=== PATIENT | female | born 1990 | race Caucasian/White ===

== ENCOUNTER → 2020-08-21 06:51 | Outpatient (CLI) | payer OTHER, SELFPAY ==
[2020-08-02 09:10] VITALS: BMI 26.5
--- NOTE | 2020-08-22 08:32 | PFT ---
INTRODUCTION: The patient is a 30-year-old female that presents for pulmonary function studies secondary to a diagnosis of dyspnea. Respiratory therapy reports good patient effort. Bronchodilators were used during testing. INTERPRETATION: Forced expiration spirometry demonstrates no evidence of a large airways obstructive ventilatory defect. There was no significant response to aerosolized bronchodilators, based upon strict ATS criteria. Spirograms are of good quality and plateau normally. Body plethysmography was performed and reveals lung volumes to be within normal limits. Diffusing capacity by single breath CO is also within normal limits. IMPRESSION: Grossly normal pulmonary function studies.
== END ==
PROVIDERS: PCP Family Medicine; Referring Provider Internal Medicine Critical Care Medicine; Visit Provider Internal Medicine Critical Care Medicine
DX: R06.00 Dyspnea, unspecified (principal)
CPT/HCPCS: 94060; 94726; 94729

== ENCOUNTER 2021-02-20 13:18 | Outpatient (RCR) | payer OTHER, SELFPAY ==
[2020-08-28 07:29] VITALS: BMI 26.2
== END 2021-04-23 23:59 ==
LOC: IMMUN 13:18
PROVIDERS: PCP Family Medicine; Visit Provider Family Medicine
DX: Z23 Encounter for immunization (principal)
CPT/HCPCS: 0001A; 0002A; 91300

== ENCOUNTER → 2022-08-02 | Outpatient (CLI) | payer OTHER, SELFPAY ==
[2022-08-02 10:02] LABS: Absolute Lymphocyte Count 2.77 X10^3/uL (0.83-4.51); Absolute Neutrophil Count 3.3 X10^3/uL (2.0-7.7); Basophil# 0.09 X10^3/uL; Basophil% 1.3 % (0-1); Eosinophil# 0.18 X10^3/uL; Eosinophils% 2.7 % (0-5); Hematocrit 45.3 % (37-47); Hemoglobin 14.3 g/dL (12.0-15.0); Lymphocyte # 2.77 X10^3/ul (0.83-4.51); Lymphocyte % 41.2 % (19-41); Mean Corp Hgb Conc 31.6 g/dL (32-36); Mean Corpuscular Hgb 30.2 pg (27.0-32.0); Mean Corpuscular Volume 95.8 fL (81-99); Mean Platelet Vol. 10.6 fl (6.2-12.0); Monocyte% 5.9 % (0-10); NRBC Flagged by Analyzer 0 % (0-5); Neutrophil # 3.28 X10^3/uL (2.7-7.7); Neutrophil % 48.8 % (47-70); Platelet Count 238 K/mm3 (150-450); RBC Distribution Width CV 12.9 % (11.6-14.6); RBC Distribution Width SD 45.8 fl (35.1-43.9); Red Blood Count 4.73 M/mm3 (4.2-5.4); White Blood Count 6.7 K/mm3 (4.4-11.0)
[2022-08-02 10:26] LABS: Anion Gap 6 (5-15); BUN 11 mg/dL (7-18); BUN/Creat Ratio 13.9 RATIO (10-20); Calcium,Total 9.3 mg/dL (8.5-10.1); Chloride 107 mmol/L (98-107); Cholesterol 191 mg/dL (200); Creatinine, Serum 0.79 mg/dL (0.55-1.02); EST Glomerular Filtration Rate 88 mL/min (>60); Est Glom Filt Rate - Afr Amer 107 mL/min (>60); Glucose 96 mg/dL (74-106); High Density Lipoprotein 81 mg/dL; Potassium 4.9 mmol/L (3.5-5.1); Sodium Level 141 mmol/L (136-145); Thyroid Stim Hormone (TSH) 1.25 uIU/mL (0.358-3.74); Triglycerides 70 mg/dL; Very Low Density Lipoprotein 14 mg/dL (5-40)
== END | disposition home or self-care (01) ==
LOC: LAB 09:50
PROVIDERS: PCP Family Medicine; Referring Provider Family Medicine; Visit Provider Family Medicine
DX: Z00.00 Encounter for general adult medical examination without abnormal findings (principal); R53.83 Other fatigue
CPT/HCPCS: 36415; 80048; 80061; 84443; 85025

== ENCOUNTER → 2022-10-02 | Outpatient (CLI) | payer OTHER, SELFPAY ==
--- NOTE | 2022-10-02 10:38 | RAD_ITS ---
STUDY: X-RAY - RIGHT HAND, ATTENTION FIFTH FINGER REASON FOR EXAM: Female, 32 years old. FINGER INJURY TECHNIQUE: 3 view(s) of the finger were obtained. COMPARISON: None. FINDINGS: Normal metacarpal head. Normal metacarpophalangeal joint. Normal proximal phalanx. Normal middle phalanx. There is evidence of an avulsion fracture at the base of the distal phalanx of the fifth digit along its dorsal aspect. There is caudal displacement. Normal proximal interphalangeal joint. Normal distal interphalangeal joint. Soft tissue swelling. RAD/Finger(s) Min 2 Views IMPRESSION: Mildly inferiorly displaced avulsion fracture at the base of the distal phalanx of the fifth digit along its dorsal aspect. Electronically Signed: Isaac Kuo MD at 13:11 EST ,
== END | disposition home or self-care (01) ==
PROVIDERS: PCP Family Medicine; Referring Provider Family Medicine; Visit Provider Family Medicine
DX: S69.91XA Unspecified injury of right wrist, hand and finger(s), initial encounter (principal)
CPT/HCPCS: 73140

== ENCOUNTER → 2022-11-14 | Outpatient (CLI) | payer OTHER, SELFPAY ==
--- NOTE | 2022-11-14 09:05 | RAD_ITS ---
STUDY: X-RAY - RIGHT HAND REASON FOR EXAM: Female, 32 years old. Right fifth finger injury. TECHNIQUE: 3 view(s) of the hand. COMPARISON: October 02, 2022. FINDINGS: Normal radiocarpal articulation. Normal distal radioulnar joint. Normal visualized carpal bones. Normal carpal articulations Normal carpometacarpal articulation of the thumb. Normal second through fifth carpometacarpal joints. Normal metacarpi. Normal metacarpophalangeal joint of the thumb. Normal interphalangeal joint of the thumb. Normal proximal and distal phalanges of the thumb. Stable small minimally displaced avulsion fracture from the dorsal and proximal aspect of the distal phalanx of the fifth digit. No complicating features . The soft tissue structures are unremarkable. RAD/Hand Min 3 Views IMPRESSION: Stable avulsion fracture of the fifth digit as described without complications. Electronically Signed: Deion Hansen, at 9:35 EST ,
== END | disposition home or self-care (01) ==
LOC: MTRAD 09:02
PROVIDERS: PCP Family Medicine; Referring Provider Family Medicine; Visit Provider Family Medicine
DX: S69.91XA Unspecified injury of right wrist, hand and finger(s), initial encounter (principal)
CPT/HCPCS: 73130; 73140

== ENCOUNTER 2023-03-02 16:30 | Outpatient (RCR) | payer BC, SELFPAY ==
--- NOTE | 2023-02-03 10:18 | HP.OTEVAL_ITS ---
Patient's Visit Information JEANA WEINBERG is a 32 year old F, referred to Occupational Therapy by Dr. Marah Hightower MD, with a diagnosis of right LF disp.pahlanx fx. Date of Evaluation: 02/02/23 Occupational Therapist: Amie Iniguez, OTR/Abbey, CHT - Subjective This 32 year old female was seen for OT eval with dx of right LF fracture of distal phalanx- 2021 was DOI pt wearing splint Nov- until Nov. weaning out of it. pt states she was told to go without at night-. pt is left handed. 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 would like to return to her PLOF. - Pain right LF 2 Pain Intensity Range: 4 - ROM MP: right 0/90 left 0/85 PIP: right 0/65 left 0/95 DIP: right 0/10 left 0/ 75 ROM Comments: pt demo with limited ROM of right LF - Strength Vocational Ed Instructor: right 15# left 45# Lateral Pinch: right 4# left 8# Tripod Pinch: right 6# left 6# - Sensation Sensation Comments: denies - Quick DASH-Disab of Arm,Shoulder& Hand Quick DASH Score: 46.0525 - Goals Goal:ROM equal to unaffected hand: Yes Goal:Vocational Ed Instructor/Pinch strength at least 75% of unaffected hand: Yes Goal:Full use of affected hand in daily activities including: Yes - Rehabilitation General Assessment: pt demo with a decrease composite fist of right dominate hand limiting pts IND. with ADLs and IADLs. pt would benefit from skilled OT services 1-2x week for 6 weeks to increase pts functional ROM and use of right LF without compensation. Today therapist ed. pt on AROM tendon glides and blocking ex. along with meli taping when around her dog to prevent hitting her finger. Pt demo understanding and agrees to POC Rehabilitation Potential: Good - Anticipated Interventions A/AAROM/PROM, Strengthening, Triggerpoint Release, Desensitization, Modalities, Orthoses, Joint Protection/Energy Conservation, Ergonomic Education, Fine Motor Coord/Sukhi, Education re assistive Equipment, Education re Diagnosis, Home Program - Visit Plan Frequency: 1-2x /Week Duration: 4 Weeks TEXT: Thank you for the opportunity to evaluate your patient. For Medicare and Medicare HMO plans, please review the plan of care and approve it. It will need to be FAXED BACK to us at [phone] for Medicare purposes. Please let me know if there are questions or concerns regarding this plan of care. Physician S ignature: Date:
--- NOTE | 2023-06-19 09:55 | HP.OTDCSUM_ITS ---
Discharge Summary D/C Summary: It has been my pleasure to treat JEANA WEINBERG under orders from Dr. Marah Hightower MD, for the diagnosis of right LF disp.pahlanx fx for a total of 5 visit(s). Please see the following information for a summary of their discharge status. Objective Objective/Function: PIP 85 PIP following 95 increase from 65* DIP 30 DIP 40* increase 10* pt demo 40# right special services director increase from 15# pt continues to demo limited DIP flexion compared to unaffected finger- therapist ed. pt that full end range of motion may take 6-9 months. pt demo understanding and agree to POC of d/c. Goals Patient Goals: Regain Mobility, Regain Strength, Decrease Pain, Use Hand/Wrist/Arm Normally Again and Be More Independent in ADLS Goal:ROM equal to unaffected hand: Yes Goal:Animal Keeper Head/Pinch strength at least 75% of unaffected hand: Yes Goal:Full use of affected hand in daily activities including work: Yes D/C Information d/c sentence: If there are questions or concerns regarding this patient's occupational therapy, please fell free to call me at [phone]. Thank you for the referral of this patient. Sincerely, Amie Iniguez, OTR/L, CHT
== END 2023-03-02 19:00 | disposition home or self-care (01) ==
LOC: OT 16:30
PROVIDERS: PCP Family Medicine; Referring Provider Orthopaedic Surgery Hand Surgery; Visit Provider Orthopaedic Surgery Hand Surgery
DX: S62.639D Displaced fracture of distal phalanx of unspecified finger, subsequent encounter for fracture with routine healing (principal)
CPT/HCPCS: 97110; 97140; 97166; 97530

== ENCOUNTER → 2023-08-07 | Outpatient (CLI) | payer BC, SELFPAY ==
[2023-08-07 12:19] LABS: Absolute Lymphocyte Count 1.81 X10^3/uL (0.83-4.51); Absolute Neutrophil Count 6.4 X10^3/uL (2.0-7.7); Basophil# 0.06 X10^3/uL; Basophil% 0.7 % (0-1); Eosinophil# 0.09 X10^3/uL; Hemoglobin 12.8 g/dL (12.0-15.0); Lymphocyte # 1.81 X10^3/ul (0.83-4.51); Lymphocyte % 20.4 % (19-41); Mean Corpuscular Hgb 30.1 pg (27.0-32.0); Mean Corpuscular Volume 94.1 fL (81-99); Monocyte# 0.48 X10^3/uL; Monocyte% 5.4 % (0-10); NRBC Flagged by Analyzer 0 % (0-5); Neutrophil % 72.2 % (47-70); Platelet Count 230 K/mm3 (150-450); RBC Distribution Width CV 12.7 % (11.6-14.6); RBC Distribution Width SD 43.8 fl (35.1-43.9); Red Blood Count 4.25 M/mm3 (4.2-5.4); White Blood Count 8.9 K/mm3 (4.4-11.0)
[2023-08-07 13:42] LABS: ALB/GLOB Ratio 1.1 RATIO (0.9-2.4); AST(SGOT) 16 U/L (15-37); Alanine Aminotransfer ALT/SGPT 28 U/L (13-56); Albumin, Serum 3.8 g/dL (3.2-5.0); Alkaline Phosphatase 58 U/L (45-117); Anion Gap 3 (5-15); BUN 14 mg/dL (7-18); BUN/Creat Ratio 18.2 RATIO (10-20); Chloride 108 mmol/L (98-107); Cholesterol 158 mg/dL (200); Creatinine, Serum 0.77 mg/dL (0.55-1.02); EST Glomerular Filtration Rate 91 mL/min (>60); Est Glom Filt Rate - Afr Amer 110 mL/min (>60); Globulin 3.5 g/dL (2.2-4.2); Glucose 96 mg/dL (74-106); High Density Lipoprotein 67 mg/dL; Potassium 4.2 mmol/L (3.5-5.1); Protein, Total 7.3 g/dL (6.4-8.2); Sodium Level 138 mmol/L (136-145); Thyroid Stim Hormone (TSH) 0.92 uIU/mL (0.358-3.74); Triglycerides 63 mg/dL; Very Low Density Lipoprotein 13 mg/dL (5-40)
[2023-08-12 17:07] LABS: Age Gdln ACOG Testing 30-65 (.); HPV APTIMA, High Risk Negative (Negative)
[2023-08-12 17:46] LABS: HPV Reflexed? YES, CHARGE PATIENT
== END | disposition home or self-care (01) ==
PROVIDERS: PCP Family Medicine; Referring Provider Family Medicine; Visit Provider Family Medicine
DX: Z00.00 Encounter for general adult medical examination without abnormal findings (principal); Z12.4 Encounter for screening for malignant neoplasm of cervix; R00.0 Tachycardia, unspecified
CPT/HCPCS: 36415; 80053; 80061; 84443; 85025; 87624; 88175; G0145

== ENCOUNTER 2023-10-12 07:30 | Outpatient (RCR) | payer BC, SELFPAY ==
--- NOTE | 2023-08-21 12:35 | HP.PTEVAL_ITS ---
Patient's Visit Information Visit Information Visit Information: JEANA WEINBERG is a 33 year old F referred to Physical Therapy by Dr. Chi Lynn, with a diagnosis of PATELLOFEMORAL DISORDER AND PAIN IN L KNEE. Date of Evaluation: 08/21/23 Physical Therapist: Shelia Villaseñor, PT, Cert MDT Visit Plan Frequency: 2x /Week Duration: 4-6 Weeks Plan: LLE ROM, STRETCHING, STRENGTHENING AND FUNCTIONAL TRAINING/CORRECTIVE EX TO HELP MEET SET GOALS. CONSIDER FOOT MECHANICS AND NEED FOR ORTHOTICS. ALSO CONSIDER VIDEO FOR MOVEMENT ANALYSIS. HEP INSTRUCTION. 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 Disability: NO Present symptoms: LEFT KNEE PAIN NEAR KNEE CAP. PATIENT DENIES LE NUMBNESS AND TINGLING. Present since: APPROX MARCH 2023. HAS BEEN CONTINUING TO WORK OUT AND WORK THROUGH THE PAIN BUT IN COULDN'T PUSH THROUGH TO DO A SQUAT AND THAT IS WHEN DECIDED TO CONSULT ORTHO. Pain Scale: WORST 9/10, LEAST 1/10. SHARP PAINS ARE BRIEF. ACHING IS MORE CONSTANT. Currently: 1/10 Is it getting better, worse or staying the same: GETTING BETTER. Commenced as a result of: NO APPARENT REASON Symptoms at onset: PAIN IN THE BACK OF THE KNEE Worse: TRYING TO MOVE AFTER BEING STATIONARY FOR A PROLONGED PERIOD OF TIME, SQUATTING, LUNGES, GOING UP AND DOWN STEPS. Better: CONTINUING TO MOVE THROUGH STIFFNESS. COMPRESSION SLEEVE. ORAL STEROID - STARTED IT THURSDAY AND TODAY IS THE LAST DAY - HAS HELPED SIGNIFICANTLY. Disturbed sleep: NOT CURRENTLY BUT IT WAS. Previous history/Previous treatment: L KNEE PAIN AT AGE 12. WENT TO ORTHO AT THAT TIME - NOT SURE OF DX. TREATED WITH CORTISONE SHOTS AND THERAPY. PAIN HAS BEEN EPISODIC OVER THE YEARS. HAS HAD MULTIPLE CORTISONE SHOTS. SOMETIMES THE PAIN LASTS FOR 2-3 DAYS AND STOPS ON ITS OWN AND OTHER TIMES IT DOENS'T. THIS SEEMS TO BE THE LONGEST EPISODE. NO KNEE SURGERY. Treatment this episode: ONE CONSULT WITH DR. LYNN. ORAL STEROID. THIS PT REFERRAL. Gait: DIFFICULTY INITIATING GAIT AFTER PROLONGED SITTING OR LYING BUT THEN BECOMES NORMAL AND MILD 1/10 PAIN. Bowel or Bladder Dysfunction: NO Accidents: NO Unexplained weight loss: NO Imaging: RECENT L KNEE X-RAY SHOWS KNEE CAP IS PULLED SLIGHTLY FORWARD PER PATIENT REPORT. PMH/Recent major surgery: GOING TO BE EVALUATED FOR TACHYCARDIA. DENIES H/O LBP. OTHER: WORKING OUT REGULARLY UNTIL SEP 2022, BROKE FINGER, THEN RESUMED EXERCISING IN MARCH 2023 AND RELATED KNEE PAIN TO MUSCLE FATIGUE. PATIENT GOAL: TO MAKE SURE I AM MOVING RIGHT AND TO LEARN WHAT TO DO TO HELP IT WITHOUT A STEROID IF IT DOES FLARE BACK UP AGAIN. Objective Objective: THIS PATIENT AMBULATES INDEP'LY INTO PHYSICAL THERAPY WITHOUT ANY AD'S OR GROSS DEVIATIONS NOTED. INDEP TRANSFERS SIT TO STAND WITHOUT UE ASSIST. MILD LEFT PF JT REGION SWELLING. MILD TENDERNESS ALONG MEDIAL AND L ATERAL/INFERIOR PF JT LINES. MIKAEL LE LIGHT TOUCH SENSATION GROSSLY INTACT AND SYMMETRICAL. MIKAEL LE ROM WFL WITH MILD HS AND GASTROC-SOLEUS TIGHTNESS. STRENGTH: RLE: WFL. LLE: HIP FLEX 4/5, ABD 4/5, ADD 4/5, EXT 4+/5 IR 4/5 ER 4/5, KNEE EXT 4/5, KNEE FLEX 5/5, ANKLE 5/5. CORE STRENGTH: FAIR. PATIENT ABLE TO SQUAT TO 90 DEG TODAY BUT EXHIBITS L KNEE VALGUS AND L FOOT PRONATION. TREATMENT: 4 WAY SLR'S, TKE AND WALL LEAN CALF STRETCHING - WRITTEN HEP INSTRUCTIONS PROVIDED. PATIENT PERFORMED AND TOLERATED EX'S WELL TODAY. Special Tests L Knee Nelson - Meniscus: Negative L Knee Anterior Drawer - ACL: Negative L Knee Posterior Drawer - PCL: Negative L Knee Valgus - MCL: Negative L Knee Varus - LCL: Negative Balance/Special Test Scores Lower Extremity Functional Score: 72 Goals Goal 1:: PATIENT WILL BE ABLE TO GO UP AND DOWN STEPS RECIP WITHOUT UE ASSIST, DEVIATION OR C/O PAIN. Goal Time Frame: 4-6 Weeks Goal 2:: PATIENT WILL BE ABLE TO DO SQUATS AND LUNGES WITHOUT PAIN OR DEVIATION TO ALLOW FOR RETURN TO PRIOR LEVEL OF FUNCTION Goal Time Frame: 4-6 Weeks Goal 3:: PATIENT WILL BE INDEP WITH A SAFE HEP FOR CONTINUED IMPROVEMENT ONCE FORMAL PHYSICAL THERPAY CONCLUDES. Goal Time Frame: 4-6 Weeks Rehabilitation Potential Rehabilitation Potential: Good Anticipated Interventions Patient/Client Instruction: Educate patient on: Condition, Plan of Care and Risk Factors For the Purpose of:: To improve self management Therapeutic Exercise to Include: Strength training, Body mechanics and Flexibilty training Comment: STAIR TRAINING For the Purpose of:: To decrease pain, To increase ROM, To improve muscle performance and motor function, To increase tolerance to activity/condition/position and To improve ability of physical actions for home/community/work/leisure Cryotherapy (ice pack, ice massage): Yes For the Purpose of:: To decrease swelling/inflammation Text: Thank you for the opportunity to evaluate your patient. For Medicare and Medicare HMO plans, please review the plan of care and approve it. It will need to be FAXED BACK to us at [phone] for Medicare purposes. For Medicare only, by signing this I certify the plan of care. Please let me know if there are questions or concerns regarding this plan of care. Physician Signature: Date:____
--- NOTE | 2023-09-18 07:53 | HP.PTREVAL ---
Re-Evaluation Intro: Dr. Chi Lynn, DO, It has been my pleasure to treat JEANA WEINBERG over the last 8 visits for PATELLOFEMORAL DISORDER AND PAIN IN L KNEE. Please see the progress note below for an update on the physical therapy plan of care! Subjective Subjective: Much better but still some discomfort intermittently. Overall about 90% better. Steroids really helped and has been off for a while. Pain is no longer sharp but more fatigue and brief now. Sore medially this am to the touch. Worked out this am upper body and hang cleans. Avoiding lower level of lunges. Sleep is OK. Exercises are Ok. Activities are normal just painful at times. Got new shoes per recommendation. Doing beach body 645...squats and lunges, single leg deadlifts. Objective Objective/Function: Full AROM L knee without pain, walking normal and steps normal, squats without sagittal plane abnormalities today or compensation. Plan Plan Plan: Pt to addx above mentioned ex to HEP and continue at home for 3 weeks then f/u tas needed to ensure progess and d/c. Consider progression of coronal and frontal plane ex. Balance/Gait/Functional tests Balance/Special Test Scores Lower Extremity Functional Score: 73 Goals Goals Goal 1:: PATIENT WILL BE ABLE TO GO UP AND DOWN STEPS RECIP WITHOUT UE ASSIST, DEVIATION OR C/O PAIN. Goal Time Frame: 4-6 Weeks Goal Progress: Goal Met Goal 2:: PATIENT WILL BE ABLE TO DO SQUATS AND LUNGES WITHOUT PAIN OR DEVIATION TO ALLOW FOR RETURN TO PRIOR LEVEL OF FUNCTION Goal Time Frame: 4-6 Weeks Goal Progress: modified Goal 3:: PATIENT WILL BE INDEP WITH A SAFE HEP FOR CONTINUED IMPROVEMENT ONCE FORMAL PHYSICAL THERPAY CONCLUDES. Goal Time Frame: 4-6 Weeks Goal Progress: Goal Met Anticipated Interventions Anticipated Interventions Patient/Client Instruction: Educate patient on: Condition, Plan of Care and Risk Factors For the Purpose of:: To improve self management Therapeutic Exercise to Include: Strength training, Body mechanics and Flexibilty training Comment: STAIR TRAINING For the Purpose of:: To decrease pain, To increase ROM, To improve muscle performance and motor function, To increase tolerance to activity/condition/position and To improve ability of physical actions for home/community/work/leisure Cryotherapy (ice pack, ice massage): Yes For the Purpose of:: To decrease swelling/inflammation Re-Evaluation Ending Re-evaluation ending: Please do not hesitate to contact me at [phone] by phone or if you have questions or concerns regarding this new plan of care! Sincerely, Daquan James, DPT, OCS, CSCS
--- NOTE | 2023-10-12 07:51 | HP.PTDCSUM ---
Discharge Summary D/C summary: It has been my pleasure to treat JEANA WEINBERG referred by Dr. Chi Lynn DO, with the diagnosis of PATELLOFEMORAL DISORDER AND PAIN IN L KNEE for a total of 9 visit(s). Discharge Date: 10/12/23 Please see the following information for a summary of their discharge status. Subjective Subjective: Regular working out and working from home. Travelled to [place] last week. Wore compression sleeve down with trip as knee was bothering her. Got sharp pain crossing legs for 15 seconds last week. HEP going well, To doctor Spittle today. Sleep is OK. Plans to continue via HEP strengthening legs 3x/week. Overall Improvement % Improvement: 90 Objective Objective/Function: Full aROM without pain today. strength in hip is 4+/5 without pain, good flexibillity. Walks and steps today without pain, squats and lunges without pain today. Goals Goal 1:: PATIENT WILL BE ABLE TO GO UP AND DOWN STEPS RECIP WITHOUT UE ASSIST, DEVIATION OR C/O PAIN. Goal Progress: Goal Met Goal 2:: PATIENT WILL BE ABLE TO DO SQUATS AND LUNGES WITHOUT PAIN OR DEVIATION TO ALLOW FOR RETURN TO PRIOR LEVEL OF FUNCTION Goal Progress: Goal Met Goal 3:: PATIENT WILL BE INDEP WITH A SAFE HEP FOR CONTINUED IMPROVEMENT ONCE FORMAL PHYSICAL THERPAY CONCLUDES. Goal Progress: Goal Met Plan Plan: d/c to HEP, pt to see doctor today for f/u. D/C Information Discharge Comments: d/c pt to continue HEP LE strength 3x/week and f/u with doctor to see if any other options this morning. d/c sentence: If there are questions or concerns regarding this patient's physical therapy, please feel free to call me at [phone]. Thank you for the referral of this patient. Sincerely, Daquan James, DPT, OCS, CSCS Balance/Gait/Functional tests Balance/Special Test Scores Lower Extremity Functional Score: 73 Improvement % Improvement: 90
== END 2023-10-12 19:00 | disposition home or self-care (01) ==
LOC: PT 07:30
PROVIDERS: PCP Family Medicine; Visit Provider Student in an Organized Health Care Education/Training Program
DX: M22.2X2 Patellofemoral disorders, left knee (principal); M25.562 Pain in left knee
CPT/HCPCS: 97110; 97161; 97164; 97530

== ENCOUNTER → 2023-11-25 | Outpatient (CLI) | payer BC, SELFPAY ==
--- NOTE | 2023-11-25 13:54 | ECHOD_ITS ---
Reason For Study: TACHYCARDIA Procedure This was a 2D Doppler, Color Flow transthoracic echocardiogram. Exam performed in department. Left Ventricle Normal LV size. Left ventricular systolic function is normal. The estimated ejection fraction is 60 %. Normal diastology for age. No regional wall motion abnormalities noted. Right Ventricle Normal RV size. Normal systolic function. Atria Normal left atrium. Normal right atrium. Mitral Valve Normal mitral valve. Tricuspid Valve Normal tricuspid valve. Mild tricuspid valve insufficiency. Pulmonary artery systolic pressure is 26 mmHg. Aortic Valve Normal aortic valve. Trisinus/trileaflet aortic valve. Pulmonic Valve Normal pulmonic valve. Great Vessels Normal aortic root. The pulmonary is not well visualized. Inferior vena cava collapse with respiration. Pericardium/Pleural No pericardial effusion. MMode/2D Measurements & Calculations LVIDd: 3.8 cm IVSd: 0.63 cm LVOT diam: 1.9 cm LVIDs: 2.9 cm LVPWd: 0.73 cm LVOT area: 2.7 cm2 RVDd: 2.8 cm FS: 22.6 % Ao root diam: 3.0 cm LAV(MOD-bp): 45.7 ml LVAd ap4: 24.0 cm2 LAV(MOD-bp) Indexed: 26.0 ml/m2 LVLd ap4: 7.5 cm LAV(MOD-sp2): 48.1 ml EDV(MOD-sp4): 62.6 ml LAV(MOD-sp4): 40.6 ml EDV(sp4-el): 64.6 ml LVAs ap4: 13.2 cm2 LVLs ap4: 6.2 cm ESV(MOD-sp4): 23.6 ml ESV(sp4-el): 23.9 ml EF(MOD-sp4): 62.2 % EF(sp4-el): 63.0 % LVAd ap2: 24.6 cm2 SV(MOD-sp4): 39.0 ml SV(MOD-sp2): 40.0 ml LVLd ap2: 7.2 cm EDV(MOD-sp2): 69.0 ml EDV(sp2-el): 71.5 ml LVAs ap2: 14.4 cm2 LVLs ap2: 5.7 cm ESV(MOD-sp2): 29.0 ml ESV(sp2-el): 30.6 ml EF(MOD-sp2): 58.0 % SV(sp4-el): 40.8 ml LA dimension(2D): 3.1 cm LA A4 area: 15.4 cm2 RA A4 area: 14.3 cm2 TAPSE: 2.0 cm Time Measurements MV dec time: 0.19 sec Doppler Measurements & Calculations MV E max wenceslao: 89.4 cm/sec Lat Peak E' Wenceslao: 19.4 cm/sec Med Peak E' Wenceslao: 14.8 cm/sec MV A max wenceslao: 68.0 cm/sec E/E' lat: 4.6 E/E' med: 6.1 MV E/A: 1.3 Ao V2 max: 121.6 cm/sec LV V1 max: 108.3 cm/sec MV dec slope: 481.0 cm/sec2 Ao max P.9 mmHg LV V1 max P.7 mmHg Ao V2 mean: 90.0 cm/sec LV V1 mean P.1 mmHg Ao mean P.6 mmHg LV V1 mean: 84.9 cm/sec Ao V2 VTI: 29.8 cm LV V1 VTI: 25.9 cm AV (velocity ratio): 0.87 RADHA(I,D): 2.3 cm2 RADHA(V,D): 2.4 cm2 SV(LVOT): 69.8 ml PA V2 max: 108.0 cm/sec TR max wenceslao: 236.6 cm/sec PA max PG (full): 2.6 mmHg TR max P.4 mmHg ECHO/Echo Complete Interpretation Summary Normal LV size. Left ventricular systolic function is normal. The estimated ejection fraction is 60 %. Normal diastology for age. Structurally normal valves. Ordering Physician: Herber Vizcarra Referring Physician: Herber Vizcarra MD Performed By: Martha Eid RDCS
== END | disposition home or self-care (01) ==
LOC: CVS 13:53
PROVIDERS: PCP Family Medicine; Referring Provider Internal Medicine Cardiovascular Disease; Visit Provider Internal Medicine Cardiovascular Disease
DX: R00.0 Tachycardia, unspecified (principal)
CPT/HCPCS: 93306

== ENCOUNTER 2024-01-19 12:36 | Observation (INO) | payer BC, SELFPAY ==
--- NOTE | 2024-01-14 16:28 | HP.PCM_ITS ---
History and Physical Date of Admission: 01/19/24 Pleasant 33-year-old lady who presents to the brine room laborer for an ablation. She has no previous cardiac history, but a history of tachycardia which she says has been going on for many years. She says that as a child sometimes she will get up and she will feel her heart racing and certainly when she tried doing any cardio work or lunges she noticed that her heart was racing. As part of her work-up she had an event monitor placed which demonstrated periods of tachycardia as well as on day for an episode of a narrow complex tachycardia with a rate of approximately 223 bpm. No obvious other symptoms were noted. She says that she has had some of these episodes and she has been able to t erminate them. She has had no dizziness no chavez syncope she does not drink too much caffeinated beverage and only occasionally uses albuterol nebulizer. Her physical exam is unremarkable her electrocardiogram demonstrates sinus rhythm with no acute changes. Laboratory tests noted to be normal including TSH. Intake Vital Signs See EMR Allergies See EMR Medications See EMR [facility] Medical History Asthma Back problem Cystic acne Tachycardia Surgical History No pertinent past surgical history Family History Mother Sleep apneaOther Allergies Depression Social History household members: significant other current occupational status: employed current occupation: [employer] Smoking Status: Never smoker alcohol intake: current alcohol intake frequency: holidays/special occasions only substance use type: does not use ROS Const Const: Negative for fatigue, weakness, headache(s), daytime sleepiness or difficulty sleeping Eyes Eyes: Negative for change in vision ENT ENT: Negative for headache(s), dizziness or Nosebleed/epistaxis Cardio Chest Pain: No Palpitations: No Edema: None Resp Respiratory: Positive for SOB with activity (associated with pressure in chest at times); Negative for SOB at rest, SOB orthopnea\SOB lying down or Cough GI GI: Negative nausea, vomiting or heartburn Neuro Neuro: Negative for dizziness, lightheadedness, near syncope, headache(s) or weakness Endo Endo: Negative for fatigue Cardiology Exam Const Appearance: cooperative, healthy appearing, no acute distress, well developed and well groomed Nutritional Appearance: average body habitus and well nourished Orientation: alert, awake and oriented x3 Head Head: normal to inspection, normocephalic and atraumatic Ears: hearing grossly normal bilaterally and external ears normal Nose: external nose normal, nares normal, nasal mucous membranes and turbinates normal, septum normal and no nasal discharge Face and Sinus: face symmetric Mouth: oral mucosae normal, tongue normal, oropharynx normal and moist mucous membranes Teeth and gingiva: dentition normal Throat: posterior oropharynx normal, tonsils normal and uvula midline Eyes General: appearance normal, both eyes and all related structures Eyelids: eyelids normal Conjunctivae: conjunctivae normal Pupils: PERRL, normal by confrontation and accommodation normal EOM: EOM intact bilaterally Neck Neck: normal visual inspection, trachea midline and no JVD JVD: +5 Carotids: normal carotid upstroke and bounding pulses Chest Chest inspection: normal inspection of the chest, symmetric chest movement and normal respiratory effort Auscultation: Bilateral: Clear to Auscultation Cardio Palpation: normal PMI Rate: regular rate Rhythm: regular rhythm Heart sounds: S1 normal, S2 normal and normal, physiologic split S2; Negative rub, gallop or murmur GI GI: normal to inspection, soft, no hepatosplenomegaly and bowel sounds present Neuro General: patient alert, patient awake, patient oriented x3, gait normal, moves all extremities and no focal sensory deficit Skin Skin: no rashes or lesions noted Extremities Pulses: Normal: Right Femoral Pulse, Left Femoral Pulse, Right Dorsalis Pedis Pulse, Left Dorsalis Pedis Pulse, Right Posterior Tibial Pulse, Left Posterior Tibial Pulse, Right Radial Pulse and Left Radial Pulse Lower Extremity Edema: None: Bilateral Musculoskel Musculoskeletal: No joint tenderness Psych Psychological: normal affect Supplemental Info Supplemental Information Assessment and Plan Assessment and Plan (1) SVT (supraventricular tachycardia): Status: Acute Plan: She does have a evidence of a supraventricular tachyarrhythmia 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 I did discuss the therapies including watchful waiting, beta-sahil or calcium channel sahil, and EP study with ablation. She will lean towards an ablation. Risk benefits alternatives have been discussed with her, she understands and agrees to proceed.
[2024-01-18 08:30] VITALS: BMI 29.4
[2024-01-19 10:21] LABS: Absolute Lymphocyte Count 1.61 X10^3/uL (0.83-4.51); Absolute Neutrophil Count 4.9 X10^3/uL (2.0-7.7); Basophil# 0.07 X10^3/uL; Eosinophil# 0.07 X10^3/uL; Hematocrit 40.1 % (37-47); Hemoglobin 12.9 g/dL (12.0-15.0); Lymphocyte # 1.61 X10^3/ul (0.83-4.51); Lymphocyte % 22.9 % (19-41); Mean Corp Hgb Conc 32.2 g/dL (32-36); Mean Corpuscular Hgb 29.2 pg (27.0-32.0); Mean Corpuscular Volume 90.7 fL (81-99); Mean Platelet Vol. 10.9 fl (6.2-12.0); Monocyte% 5.7 % (0-10); NRBC Flagged by Analyzer 0 % (0-5); Neutrophil # 4.87 X10^3/uL (2.7-7.7); Neutrophil % 69.1 % (47-70); Platelet Count 207 K/mm3 (150-450); RBC Distribution Width CV 12.8 % (11.6-14.6); RBC Distribution Width SD 42.5 fl (35.1-43.9); Red Blood Count 4.42 M/mm3 (4.2-5.4)
[2024-01-19 10:30] LABS: Internal QC Validated? YES +Cl - CLEAR BKGD; Pregnancy, Serum, hCG Quali. NEGATIVE Negative
[2024-01-19 10:33] LABS: Anion Gap 8 (5-15); BUN 8 mg/dL (7-18); BUN/Creat Ratio 10.9 RATIO (10-20); Calcium,Total 8.7 mg/dL (8.5-10.1); Chloride 109 mmol/L (98-107); Creatinine, Serum 0.73 mg/dL (0.55-1.02); EST Glomerular Filtration Rate 96 mL/min (>60); Est Glom Filt Rate - Afr Amer 116 mL/min (>60); Estimated Creatinine Clearance 104.53 ml/min; Glucose 93 mg/dL (74-106); Potassium 4.2 mmol/L (3.5-5.1); Sodium Level 142 mmol/L (136-145)
--- NOTE | 2024-01-19 12:26 | ELECTROSTU_ITS ---
Electrophysiology Report Electrophysiology Report Dat Cohen is a 33 year old female who has a past medical history of SVT, who presented to the [facility] lab for further evaluation regarding an EP study. Findings: BASELINE ISUPREL SCL: 775ms SCL: 401ms AH: 60ms AH: 70ms HV: 40ms HV: 40ms Maximum SNRT: 890ms CSNRT: 115ms AVBCL: 350ms VABCL: 310ms Decremental Conduction? y Concentric: y AVN ERP <200 @ 600 VERP 220 @ 500 BASELINE ISUPREL Inducible Tachycardia: y Inducible Tachycardia (post ablation): n Diagnosis: AVNRT VA interval at Hisduring tachycardia: <70ms Ablation of: slow pathway Ablation Catheter Used: SF DF curve Results of Ablation Site of Ablation: slow pathway, multiple junctional beats Successful Post Ablation Testing BASELINE ISUPREL SCL: 500ms SCL: 401ms AH: 80ms AH: 70ms HV: 40ms HV: 40ms AVBCL: 400ms AVBCL: 250ms AVN ERP 230ms @ 500ms AVN ERP <200ms @ 360ms VA BCL: 320ms VA BCL: 250ms Procedure Summary * Patient prepped and draped in sterile fashion. * Right groin infiltrated with lidocaine. * Right femoral access obtained x3 with ultrasound guidance. * Sheaths inserted into femoral veins via Seldinger technique. * Catheters inserted through right groin. * EPS results listed below in conclusions. * Isuprel testing performed. * Sheaths pulled in lab and hemostasis achieved per protocol. Conclusions 1. Baseline rhythm is sinus rhythm. 2. Normal sinus node function (longest SNRT 890ms). 3. Normal AV node function, normal infranodal conduction (HV= 40ms). 4. No evidence of accessory pathway. 5. Evidence of dual AV node physiology. 6. VA conduction present and is decremental.? 7. 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 Septal VA time <70ms. With ventricular entrainment, there was a VAHV response, PPI-TCL >110ms, and S-A minus V-A >80ms consistent with typical AVNRT. 8. Ablation performed at the slow pathway with fluoroscopic guidance. With ablation, there were multiple junctional beats. Post ablation EPS at baseline and on isuprel had no evidence of recurrent AVNRT or SVT. Recommendations 1. Stop metoprolol 2. Routine sheath/groin care 3. Bedrest for 3 hours 4. Admit for observation 5. The patient can continue to follow-up with Dr. Vizcarra.
[2024-01-19 12:50] VITALS: BP 122/79; PULSE 93; RESP 16; TEMP 36.6; O2SAT 99
[2024-01-19 13:16] VITALS: BP 118/78; PULSE 82; RESP 16; O2SAT 99
[2024-01-19 13:17] VITALS: BMI 27.4
[2024-01-19 13:37] VITALS: BP 122/85; PULSE 91; RESP 16; O2SAT 100
[2024-01-19 14:06] VITALS: BP 119/84; PULSE 90; RESP 16; O2SAT 99
[2024-01-19 15:39] VITALS: BP 118/73; PULSE 75; RESP 16; TEMP 37; O2SAT 99
[2024-01-19 21:39] VITALS: BP 121/81; PULSE 76; RESP 14; TEMP 36.6; O2SAT 99
[2024-01-20 03:39] VITALS: BP 131/76; PULSE 76; RESP 16; TEMP 36.4; O2SAT 99
--- NOTE | 2024-01-20 07:13 | PCM.PN.CARD ---
Subjective Subjective Patient seen and evaluated. Patient appears to be doing well. No arrhythmias overnight. Objective Data Vital Signs: Vital Signs Temp Pulse Resp BP Pulse Ox O2 Del Method 97.6 F L 76 16 131/76 H 99 Room Air 01/20/24 03:39 01/20/24 03:39 01/20/24 03:39 01/20/24 03:39 01/20/24 03:39 01/20/24 03:39 Oxygen Delivery Method Room Air Weight: 155 lb Body Mass Index (BMI) 27.4 Intake & Output: Intake and Output for Last 24 Hours 01/18/24 01/19/24 01/20/24 23:59 23:59 23:59 Intake Total 980 / 980 240 / 240 Balance 980 / 980 240 / 240 Lab / Micro Data 01/19/24 10:10 01/19/24 10:10 Labs: Laboratory Results - last 24 hr 01/19/24 10:10: WBC 7.0, RBC 4.42, Hgb 12.9, Hct 40.1, MCV 90.7, MCH 29.2, MCHC 32.2, RDW Std Deviation 42.5, RDW Coeff of Dana 12.8, Plt Count 207, MPV 10.9, Immature Gran % (Auto) 0.300, Neut % (Auto) 69.1, Lymph % (Auto) 22.9, Stephens % (Auto) 5.7, Eos % (Auto) 1.0, Baso % (Auto) 1.0, Absolute Neuts (auto) 4.9, Absolute Lymphs (auto) 1.61, Nucleated RBC % 0, Sodium 142, Potassium 4.2, Chloride 109 H, Carbon Dioxide 25.0, Anion Gap 8, BUN 8, Creatinine 0.73, Estim Creat Clear Calc 104.53, Est GFR (MDRD) Af Amer 116, Est GFR (MDRD) Non-Af 96, BUN/Creatinine Ratio 10.9, Glucose 93, Calcium 8.7, Serum , Qual NEGATIVE Cardiology Labs/Tests 01/19/24 10:10: WBC 7.0, RBC 4.42, Hgb 12.9, Hct 40.1, MCV 90.7, MCH 29.2, MCHC 32.2, Plt Count 207, MPV 10.9, Immature Gran % (Auto) 0.300, Neut % (Auto) 69.1, Lymph % (Auto) 22.9, Stephens % (Auto) 5.7, Eos % (Auto) 1.0, Baso % (Auto) 1.0, Absolute Neuts (auto) 4.9, Nucleated RBC % 0, Sodium 142, Potassium 4.2, Chloride 109 H, Carbon Dioxide 25.0, Anion Gap 8, BUN 8, Creatinine 0.73, Est GFR (MDRD) Af Amer 116, Est GFR (MDRD) Non-Af 96, BUN/Creatinine Ratio 10.9, Glucose 93, Calcium 8.7 Rhythm: EKG: ECHO: Stress Test: Cardiac Cath: PCI: CT Surgery: Holter monitor: EPS: PPM: CXR: Chest CT Scan: Physical Exam Const alert, oriented x3 and no apparent distress General Appearance: cooperative HEENT hearing grossly normal bilaterally Head and Scalp: atraumatic Eyes EOMs intact bilaterally Neck General: normal visual inspection Chest inspection of chest normal and palpation of chest normal Resp normal respiratory effort Auscultation: clear to auscultation bilaterally Cardio regular rate, regular rhythm, S1 normal heart sound and S2 normal heart sound Jugular Venous Distention: JVD GI normal to inspection, nondistended, normoactive bowel sounds Extremity normal capillary refill and no pedal edema Peripheral Pulses: Yes pulses 2+ throughout and femoral pulses present Skin no rashes or lesions noted Neuro oriented x3 and CN's II-XII intact bilaterally Psych Appearance: grossly normal and appropriate Assessment & Plan Assessment/Plan (1) SVT (supraventricular tachycardia): PLAN: Status post successful EP ablation for SVT. Patient doing well. Will be discharged for outpatient follow-up. Beta-sahil can be discontinued.
[2024-01-20 07:15] VITALS: BP 118/78; PULSE 71; RESP 16; TEMP 37.1; O2SAT 99
--- NOTE | 2024-01-20 07:15 | DCINST_ITS ---
Discharge Instructions Diet Discharge Diet: No restrictions (You may continue your normal diet.) Activity Discharge Activity: Return to Normal Activity Lifting Restrictions: 10 pounds and also avoid any pushing or pulling for 3 days after your test. Additional Activity Instructions:: You must have someone drive you home. Do not drive until instructed by your doctor. You must have someone stay with you all night after your test. Rest in bed or on the couch until the next morning. Limit the number of times you go up and down stairs the day of your test. Apply pressure to the puncture site if you sneeze or cough. Dressing / Incision Call your doctor if your incision/area has: Increased Pain/ Swelling, Increased Redness, Foul Smelling Discharge and Swelling at the incision site Call your doctor if you observe: Fever of 101 or Higher Additional Dressing/Incision Instructions:: Keep the dressing (bandage) on until the next morning. You may then shower, but do not take a tub bath for 5 days after your test. It is normal to have some tenderness and discomfort at the puncture site. Sometimes bruising also occurs. However, if pain, numbness, or coldness occurs below the puncture site (in your leg, toes, arms or fingers) call your doctor at once. You may have a small, marble sized knot at the puncture site. This is normal. Do not rub it. It will go away in 4-6 weeks. Bleeding can occur from the area where the puncture was done. Blood may spurt or drip from the site. If blood spurts, apply pressure right away to stop bleeding and call 911. Although rare, bleeding into the tissue (hematoma) can also occur. If this happens, a large, firm area goose egg under the skin will appear. If any of these occur, lie down as flat as you can and have someone apply firm pressure to the cath site with a gauze pad or a clean washcloth for 10-15 minutes. Call 911 or go to the Emergency Department. Follow Up Care When: Office will call you for follow-up appointment. Test Results: Test results from this visit will be discussed in further detail at your follow- up appointment, if applicable. Discharge Plan Admission Admit Date/Time: 01/19/24 12:36 Attending Provider: Herber Vizcarra Primary Care Provider: Debbie Calderón Discharge Orders/Prescriptions Prescriptions: No Action albuterol sulfate 90 mcg/actuation aerosol powdr breath activated 2 inh INHALATION Q4H PRN (Reason: shortness of breath or wheezing) etonogestrel-ethinyl estradiol [NuvaRing] 0.12-0.015 mg/24 hr ring 1 vag ring VAGINAL Q4W Rx Instructions: leave in place for 3 weeks of a 4-week cycle loratadine [Claritin] 10 mg tablet 10 mg PO DAILY Daily Probiotic 2.5 billion cell capsule PO fluticasone propionate [Flonase Allergy Relief] 50 mcg/actuation spray,suspension 2 spray INTRANASAL DAILY Qty: 18.2 4RF Rx Instructions: administer into each nostril ginkgo biloba leaf extract 40 mg capsule 40 mg PO DAILY Rx Instructions: give with meal/snack Referrals / Follow Up: Debbie Calderón MD [Primary Care Provider] - Disposition Disposition (needs filled in before D/C Order can be placed): Home, Self Care
== END 2024-01-20 07:15 | disposition home or self-care (01) ==
LOC: PCU 12:49
PROVIDERS: Admitting Provider Internal Medicine Cardiovascular Disease; PCP Family Medicine; Referring Provider Internal Medicine; Visit Provider Internal Medicine Cardiovascular Disease
DX: I47.10 Supraventricular tachycardia, unspecified (principal); J45.909 Unspecified asthma, uncomplicated
CPT/HCPCS: 76937; 80048; 84703; 85025; 93609; 93623; 93653; 99152; 99153; 99221; C1730; J7040; C1894; G0378

== ENCOUNTER → 2025-08-18 | Outpatient (CLI) | payer BC, SELFPAY ==
[2025-08-18 11:14] LABS: Cholesterol 176 mg/dL (<=200); Glucose 86 mg/dL (70-99); Low Density Lipoprotein Calc. 93 mg/dL; Triglycerides 73 mg/dL; Very Low Density Lipoprotein 15 mg/dL (5-40); cholesterol:hdl ratio screen 2.57
== END | disposition home or self-care (01) ==
LOC: MTLAB 09:29
PROVIDERS: PCP Family Medicine; Referring Provider Family Medicine; Visit Provider Family Medicine
DX: Z00.00 Encounter for general adult medical examination without abnormal findings (principal)
CPT/HCPCS: 36415; 80061; 82947